=== PATIENT | female | born 2000 | race Caucasian/White ===

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

== ENCOUNTER 2021-02-27 22:07 | Emergency (ER) | payer OTHER, SELFPAY | END 2021-02-28 00:11 | disposition left against medical advice (07) | LOC: MW.ED 22:07 | DX: Z53.21 Procedure and treatment not carried out due to patient leaving prior to being seen by health care provider (principal) ==

== ENCOUNTER 2021-02-28 11:04 | Emergency (ER) | payer SELFPAY ==
[2021-02-28] MEDS ORDERED: Sodium Chloride 0.9% 1,000 ML IV ONE (11:16)
[2021-02-28] MEDS ORDERED: Acetaminophen 500 MG Tab PO ONE (11:16)
--- NOTE | 2021-02-28 11:18 | EDM.PDOC ---
ED HPI GENERAL MEDICAL PROBLEM - General Chief Complaint: Respiratory Problem Stated Complaint: TESTED POS FOR COVID/SOB/ BOOBS TURNING BLUE Time Seen by Provider: 02/28/21 11:07 Source of Information: Reports: Patient History Limitations: Reports: No Limitations - History of Present Illness INITIAL COMMENTS - FREE TEXT/NARRATIVE: 21-year-old female past medical history of GERD, psychiatric problems presents for likely Covid related shortness of breath and chest pain. Patient notes that close contact was diagnosed 9 days ago. 7 days ago she began to develop symptoms of cough, shortness of breath, chest pain, fevers, body aches. She noticed last night that her breasts were turning blue. She notes that her shortness of breath has been worsening over the last couple of days. lungs Pain Score (Numeric/FACES): 7 - Related Data Allergies Allergy/AdvReac Type Severity Reaction Status Date / Time No Known Allergies Allergy Verified 02/28/21 11:15 Home Meds: Home Meds Timolol [Betimol] 1 drop EYEBOTH DAILY 05/11/19 [History] Past Medical History HEENT History: Reports: None Cardiovascular History: Reports: None Respiratory History: Reports: None Gastrointestinal History: Reports: None Genitourinary History: Reports: None INFORMATICS PHYSICIAN History: Reports: None Musculoskeletal History: Reports: None Neurological History: Reports: None Psychiatric History: Reports: Anxiety, Depression, PTSD, Suicidal Ideation Endocrine/Metabolic History: Reports: None Hematologic History: Reports: None Immunologic History: Reports: None Oncologic (Cancer) History: Reports: None Dermatologic History: Reports: None - Infectious Disease History Infectious Disease History: Reports: None - Past Surgical History HEENT Surgical History: Reports: Adenoidectomy, Myringotomy w Tube(s) Cardiovascular Surgical History: Reports: None Respiratory Surgical History: Reports: None GI Surgical History: Reports: None Female Surgical History: Reports: None Endocrine Surgical History: Reports: None Neurological Surgical History: Reports: None Musculoskeletal Surgical History: Reports: Other (See Below) Other Musculoskeletal Surgeries/Procedures:: lower extremity surgery bilaterally Oncologic Surgical History: Reports: None Dermatological Surgical History: Reports: None Social & Family History - Family History Family Medical History: No Pertinent Family History - Tobacco Use Tobacco Use Status *Q: Current Every Day Tobacco User Years of Tobacco use: 2 Packs/Tins Daily: 0.5 - Caffeine Use Caffeine Use: Reports: None - Recreational Drug Use Recreational Drug Use: Yes Recreational Drug Type: Reports: Marijuana/Hashish - Sexual History Other Sexual History Comment: Identifies as male. Transgender, receiving testosterone therapy. ED ROS GENERAL - Review of Systems Review Of Systems: Comprehensive ROS is negative, except as noted in HPI. ED EXAM, GENERAL - Physical Exam Exam: See Below Exam Limited By: No Limitations General Appearance: Alert, WD/WN, No Apparent Distress Ears: Hearing Grossly Normal Throat/Mouth: Normal Voice, No Airway Compromise Head: Atraumatic, Normocephalic Neck: Normal Inspection Respiratory/Chest: No Respiratory Distress, Lungs Clear, Normal Breath Sounds, No Accessory Muscle Use, Other (toledo-blue discoloration of anterior chest wall) Cardiovascular: Normal Peripheral Pulses, Tachycardia GI/Abdominal: Soft, Non-Tender Extremities: Normal Inspection Neurological: Alert, Normal Cognition, Normal Gait Psychiatric: Normal Affect, Normal Mood Skin Exam: Warm, Dry, Intact #1 Interpretation EKG Date: 02/28/21 Time: 11:53 Rhythm: NSR Rate (Beats/Min): 94 [place]: Normal P-Wave: Present QRS: Normal ST-T: Normal QT: Normal DE/PQ Interval: 132 EKG Interpretation Comments: normal EKG Course - Vital Signs Last Recorded V/S: Last Vital Signs Temp 95.1 F L 02/28/21 11:12 Pulse 92 02/28/21 14:09 Resp 17 02/28/21 14:09 BP 105/72 02/28/21 14:09 Pulse Ox 95 02/28/21 14:09 - Orders/Labs/Meds Orders: Active Orders 24 hr Category Date Time Status Pulse Oximetry [RC] ASDIRECTED Care 02/28/21 11:16 Active Saline Lock Insert [OM.PC] Stat Oth 02/28/21 11:16 Ordered Labs: Laboratory Tests 02/28/21 02/28/21 02/28/21 Range/Units 11:27 11:27 11:27 WBC 2.52 L (4.0-11.0) K/uL RBC 5.36 (4.30-5.90) M/uL Hgb 15.9 (12.0-16.0) g/dL Hct 44.8 (36.0-46.0) % MCV 83.6 (80.0-98.0) fL MCH 29.7 (27.0-32.0) pg MCHC 35.5 (31.0-37.0) g/dL RDW Std Deviation 40.6 (28.0-62.0) fl RDW Coeff of Lloyd 13 (11.0-15.0) % Plt Count 106 L (150-400) K/uL Neut % (Auto) 50.0 (48.0-80.0) % Lymph % (Auto) 34.1 (16.0-40.0) % Hopkins % (Auto) 14.7 (0.0-15.0) % Eos % (Auto) 0.4 (0.0-7.0) % Baso % (Auto) 0.8 (0.0-1.5) % Neut # (Auto) 1.3 L (1.4-5.7) K/uL Lymph # (Auto) 0.9 (0.6-2.4) K/uL Hopkins # (Auto) 0.4 (0.0-0.8) K/uL Eos # (Auto) 0.0 (0.0-0.7) K/uL Baso # (Auto) 0.0 (0.0-0.1) K/uL Nucleated RBC % 0.0 /100WBC Nucleated RBCs # 0 K/uL INR 1.05 APTT 32.3 H (18.6-31.3) SEC D-Dimer, Quantitative 0.60 H (0.0-0.50) mg/L FEU Sodium 137 (136-145) mmol/L Potassium 3.5 (3.5-5.1) mmol/L Chloride 103 (98-107) mmol/L Carbon Dioxide 22.4 (21.0-32.0) mmol/L BUN 5 L (7.0-18.0) mg/dL Creatinine 0.7 (0.6-1.0) mg/dL Est Cr Clr Drug Dosing 124.67 mL/min Estimated GFR (MDRD) > 60.0 ml/min Glucose 86 (74-106) mg/dL Lactic Acid (0.4-2.0) mmol/L Calcium 8.5 (8.5-10.1) mg/dL Magnesium 1.9 (1.8-2.4) mg/dL Total Bilirubin 0.5 (0.2-1.0) mg/dL AST 29 (15-37) IU/L ALT 26 (14-63) IU/L Alkaline Phosphatase 66 (46-116) U/L Troponin I < 0.050 (0.000-0.056) ng/mL Total Protein 7.3 (6.4-8.2) g/dL Albumin 3.8 (3.4-5.0) g/dL Globulin 3.5 (2.6-4.0) g/dL Albumin/Globulin Ratio 1.1 (0.9-1.6) HCG, Qual (NEG) SARS-CoV-2 RNA (BRIE) (NEGATIVE) 02/28/21 02/28/21 02/28/21 Range/Units 11:27 11:35 11:52 WBC (4.0-11.0) K/uL RBC (4.30-5.90) M/uL Hgb (12.0-16.0) g/dL Hct (36.0-46.0) % MCV (80.0-98.0) fL MCH (27.0-32.0) pg MCHC (31.0-37.0) g/dL RDW Std Deviation (28.0-62.0) fl RDW Coeff of Lloyd (11.0-15.0) % Plt Count (150-400) K/uL Neut % (Auto) (48.0-80.0) % Lymph % (Auto) (16.0-40.0) % Hopkins % (Auto) (0.0-15.0) % Eos % (Auto) (0.0-7.0) % Baso % (Auto) (0.0-1.5) % Neut # (Auto) (1.4-5.7) K/uL Lymph # (Auto) (0.6-2.4) K/uL Hopkins # (Auto) (0.0-0.8) K/uL Eos # (Auto) (0.0-0.7) K/uL Baso # (Auto) (0.0-0.1) K/uL Nucleated RBC % /100WBC Nucleated RBCs # K/uL INR APTT (18.6-31.3) SEC D-Dimer, Quantitative (0.0-0.50) mg/L FEU Sodium (136-145) mmol/L Potassium (3.5-5.1) mmol/L Chloride (98-107) mmol/L Carbon Dioxide (21.0-32.0) mmol/L BUN (7.0-18.0) mg/dL Creatinine (0.6-1.0) mg/dL Est Cr Clr Drug Dosing mL/min Estimated GFR (MDRD) ml/min Glucose (74-106) mg/dL Lactic Acid 1.5 (0.4-2.0) mmol/L Calcium (8.5-10.1) mg/dL Magnesium (1.8-2.4) mg/dL Total Bilirubin (0.2-1.0) mg/dL AST (15-37) IU/L ALT (14-63) IU/L Alkaline Phosphatase (46-116) U/L Troponin I (0.000-0.056) ng/mL Total Protein (6.4-8.2) g/dL Albumin (3.4-5.0) g/dL Globulin (2.6-4.0) g/dL Albumin/Globulin Ratio (0.9-1.6) HCG, Qual NEGATIVE (NEG) SARS-CoV-2 RNA (BRIE) POSITIVE H (NEGATIVE) Meds: Medications Discontinued Medications Generic Name Dose Route Start Last Admin Trade Name Dankq PRN Reason Stop Dose Admin Acetaminophen 1,000 mg 02/28/21 11:16 02/28/21 11:26 Acetaminophen 500 Mg Tab PO 02/28/21 11:17 1,000 mg ONETIME ONE Administration Sodium Chloride 1,000 mls @ 999 mls/hr 02/28/21 11:16 02/28/21 11:27 Normal Saline IV 02/28/21 12:16 999 mls/hr .Bolus ONE Administration - Re-Assessments/Exams Free Text/Narrative Re-Assessment/Exam: 02/28/21 11:19 We will get Covid work-up including labs, chest x-ray, EKG, D-dimer. Will give IV fluid bolus, Tylenol. 02/28/21 15:[address] does not show evidence of pulmonary embolism. Will discharge patient with strict return precautions for worsening shortness of breath or chest pressure. Departure - Departure Time of Disposition: 15:03 Disposition: Home, Self-Care 01 Condition: Good Clinical Impression: COVID-19 - Discharge Information Instructions: COVID-19: What to Do if You Are Sick - [facility] (06/22/2020) Referrals: PCP,None [Primary Care Provider] - Forms: ED Department Discharge Additional Instructions: Your chest CT shows evidence of Covid pneumonia. Fortunately it is a mild Covid pneumonia without evidence of blood clots in the lungs. Your oxygen level in the emergency department has been normal. If you have worsening shortness of breath or chest pain then you should come back to the emergency department for reassessment. The following information is given to patients seen in the emergency department who are being discharged to home. This information is to outline your options for follow-up care. We provide all patients seen in our emergency department with a follow-up referral. The need for follow-up, as well as the timing and circumstances, are variable depending upon the specifics of your emergency department visit. If you don't have a primary care physician on staff, we will provide you with a referral. We always advise you to contact your personal physician following an emergency department visit to inform them of the circumstance of the visit and for follow-up with them and/or the need for any referrals to a consulting specialist. The emergency department will also refer you to a specialist when appropriate. This referral assures that you have the opportunity for follow-up care with a specialist. All of these measure are taken in an effort to provide you with optimal care, which includes your follow-up. Under all circumstances we always encourage you to contact your private physician who remains a resource for coordinating your care. When calling for follow-up care, please make the office aware that this follow-up is from your recent emergency room visit. If for any reason you are refused follow-up, please contact the [facility] Emergency Department at and asked to speak to the emergency department charge nurse. Please follow up with your primary care physician. If you do not have a primary care physician, see below: [facility] [address] [place] [id number] [facility] [address] [place] [address] [facility] [address] [place] [id number] Sepsis Event Note (ED) - Evaluation Sepsis Screening Result: Possible Severe Sepsis Risk - Focused Exam Vital Signs: Vital Signs Temp Pulse Resp BP Pulse Ox 02/28/21 14:09 92 17 105/72 95 02/28/21 11:12 95.1 F L 115 H 17 113/75 95 - My Orders Last 24 Hours: My Active Orders 02/28/21 11:16 Pulse Oximetry [RC] ASDIRECTED Saline Lock Insert [OM.PC] Stat - Assessment/Plan Last 24 Hours: My Active Orders 02/28/21 11:16 Pulse Oximetry [RC] ASDIRECTED Saline Lock Insert [OM.PC] Stat
--- NOTE | 2021-02-28 12:16 | CR ---
INDICATION: Assess for COVID-19 pneumonia. TECHNIQUE: One view. COMPARISON: 01 August 2019. FINDINGS: Subtle hazy opacities at the lung bases concerning for COVID pneumonia. Pulmonary vascularity and cardiomediastinal silhouette are normal. Dictated by Frederick Doyle MD @ 02/28/2021 12:16:13 PM (Electronically Signed)
[2021-02-28 12:17] LABS: BLOOD UREA NITROGEN,BUN 5 mg/dL (7.0-18.0); CARBON DIOXIDE,CO2 22.4 mmol/L (21.0-32.0); CHLORIDE,CL 103 mmol/L (98-107); GLUCOSE RANDOM 86 mg/dL (74-106); POTASSIUM,K 3.5 mmol/L (3.5-5.1); SODIUM,NA 137 mmol/L (136-145)
--- NOTE | 2021-02-28 14:30 | CT ---
INDICATION: Cough. Rule out pulmonary embolism. TECHNIQUE: Volumetric helical scanning of the thorax was performed during infusion of 100 cc of Isovue 370 contrast material IV, timing optimized for pulmonary arterial opacification. Coronal and sagittal reconstructions were obtained. COMPARISON: Today`s chest x-ray. FINDINGS: The images are of acceptable quality and demonstrate uniform vascular enhancement within the pulmonary arteries. No pulmonary arterial filling defect is identified. The heart size is normal. Rounded infiltrates are present in both lungs, most notable in the lower lobe bases. No airway abnormality or pleural effusion is evident. There is no mediastinal or hilar lymphadenopathy. Images of the upper abdomen are unremarkable except for mild splenomegaly. IMPRESSION: 1. Negative for pulmonary embolism. 2. Rounded infiltrates consistent with pneumonia in both lungs, most notable in the lower lobe bases. Consider COVID-19 pneumonia. 3. Mild splenomegaly. Please note that all CT scans at this facility use dose modulation, iterative reconstruction, and/or weight-based dosing when appropriate to reduce radiation dose to as low as reasonably achievable. Dictated by Idris Le MD @ 02/28/2021 2:29:11 PM (Electronically Signed)
== END 2021-02-28 15:16 | disposition home or self-care (01) ==
LOC: MW.ED 11:04
DX: U07.1 COVID-19 (principal); Z72.0 Tobacco use
CPT/HCPCS: 36415; 71045; 71275; 80053; 83605; 83735; 84484; 84703; 85025; 85379; 85610; 85730; 87635; 93005; 99285; A9270; J7030; U0002

== ENCOUNTER 2023-10-16 23:46 | Emergency (ER) | payer SELFPAY ==
[2023-10-16 23:58] LABS: BASOPHILS ABSOLUTE AUTO 0.13 K/uL (0.00-0.20); BASOPHILS PERCENT AUTO 0.9 % (0.0-1.0); EOSINOPHILS ABSOLUTE AUTO 0.29 K/uL (0.00-0.45); EOSINOPHILS PERCENT AUTO 2.1 % (0.0-6.0); HEMATOCRIT 43.7 % (37.0-47.0); HEMOGLOBIN 15.3 g/dL (12.0-16.0); IMMATURE GRAN ABSOLUTE AUTO 0.08 K/uL (0.00-0.05); IMMATURE GRAN PERCENT AUTO 0.6 % (0.0-0.4); LYMPHOCYTES ABSOLUTE AUTO 4.11 K/uL (1.00-4.80); LYMPHOCYTES PERCENT AUTO 29.3 % (24.0-44.0); MEAN CORPUSCULAR HEMOGLOBIN 29.7 pg (28.0-32.0); MEAN CORPUSCULAR VOLUME 84.9 fL (83.0-99.0); MEAN PLATELET VOLUME 11.7 fL (9.4-12.3); MONOCYTES ABSOLUTE AUTO 0.96 K/uL (0.00-0.80); MONOCYTES PERCENT AUTO 6.8 % (0.0-8.0); NEUTROPHILS ABSOLUTE AUTO 8.48 K/uL (1.80-7.70); NEUTROPHILS PERCENT AUTO 60.3 % (41.0-71.0); PLATELET COUNT,PLT 347 K/uL (150-400); RED BLOOD CELL COUNT 5.15 M/uL (4.10-5.30); WHITE BLOOD CELL COUNT,WBC 14.05 K/uL (3.9-11.3)
[2023-10-16] MEDS: Sodium Chloride 0.9% 1,000 ML IV ONE (23:58)
[2023-10-16] MEDS: Pantoprazole 80 MG in Sodium Chloride 0.9% 10 ML IVPUSH ONE (23:58)
[2023-10-17 00:30] LABS: A/G RATIO 0.9 (0.9-1.6); ALANINE AMINOTRANSFERASE,ALT 18 IU/L (14-63); ALBUMIN 3.6 g/dL (3.4-5.0); ALKALINE PHOSPHATASE 68 U/L (46-116); ASPARTATE AMNIOTRANSFERASE,AST 16 IU/L (15-37); BILIRUBIN TOTAL 0.3 mg/dL (0.2-1.0); BLOOD UREA NITROGEN,BUN 9 mg/dL (7.0-18.0); CALCIUM 8.5 mg/dL (8.5-10.1); CARBON DIOXIDE,CO2 17.8 mmol/L (21.0-32.0); CHLORIDE,CL 104 mmol/L (98-107); CREATININE 0.9 mg/dL (0.6-1.0); ETHANOL BLOOD MEDICAL 176 mg/dL; GLUCOSE RANDOM 131 mg/dL (74-106); LIPASE 212 U/L (16-77); MAGNESIUM 1.9 mg/dL (1.8-2.4); POTASSIUM,K 3.3 mmol/L (3.5-5.1); PROTEIN TOTAL,TP 7.5 g/dL (6.4-8.2); SODIUM,NA 141 mmol/L (136-145)
[2023-10-17 00:40] LABS: ESTIMATED GFR 93 mL/min (>60)
[2023-10-17] MEDS: Sodium Chloride 0.9% 1,000 ML IV ONE (00:46)
== END 2023-10-17 02:06 | disposition home or self-care (01) ==
LOC: MW.ED 23:46
DX: K29.21 Alcoholic gastritis with bleeding (principal); Z79.899 Other long term (current) drug therapy; Z75.8 Other problems related to medical facilities and other health care
CPT/HCPCS: 36415; 80053; 80307; 83690; 83735; 84484; 84703; 85025; 96361; 96374; 99285; C9113; J3490; J7030

== ENCOUNTER 2025-01-14 04:48 | Emergency (ER) | payer SELFPAY ==
[2025-01-14] MEDS: Ketorolac 30 MG/ML SDV IM ONE (05:12)
== END 2025-01-14 07:29 | disposition home or self-care (01) ==
LOC: MW.ED 04:48
DX: M25.552 Pain in left hip (principal); G89.29 Other chronic pain; Z79.899 Other long term (current) drug therapy
CPT/HCPCS: 73502; 96372; 99283; A9270; J1885